=== PATIENT | female | born 1940 | race Two or more races ===

== ENCOUNTER → 2021-02-21 | Emergency (ER) | payer OTHER ==
[~2021-02-21] VITALS: Ht 157.5 cm; Wt 72.6 kg
== END | disposition home or self-care (01) ==
LOC: ER 20:33
DX: S13.4XXA Sprain of ligaments of cervical spine, initial encounter (principal); V49.40XA Driver injured in collision with unspecified motor vehicles in traffic accident, initial encounter; Y92.410 Unspecified street and highway as the place of occurrence of the external cause; I10 Essential (primary) hypertension; E03.9 Hypothyroidism, unspecified